=== PATIENT | female | born 1975 | race Caucasian/White ===

== ENCOUNTER 2023-06-13 05:50 | Emergency (ER) | payer BC, SELFPAY ==
[2023-06-13] VITALS (9 sets, daily range): BP systolic 153–189; BP diastolic 95–130; PULSE 80–95; RESP 18–20; TEMP 37.3; O2SAT 96–100; BMI 24.6
--- NOTE | 2023-06-13 06:00 | CRLHL7_ITS ---
For Patients: As a result of the Century Cures Act, medical imaging exams and procedure reports are released immediately into your electronic medical record. You may view this report before your referring provider. If you have questions, please contact your health care provider. INDICATION: stroke symptoms TECHNIQUE: CT head without contrast. COMPARISON: CT head June 15, 2018 FINDINGS: Large acute intraparenchymal hemorrhage/hematoma within the left basal ganglia, measuring 4.1 x 2.3 x 3.5 cm. There is surrounding vasogenic edema which results in effacement of the left lateral ventricle an approximately 2 mm of [id number] midline shift. The basilar cisterns are patent. Likely small amount of subjacent subarachnoid blood anteriorly. No evidence of acute hydrocephalus. Paranasal sinuses and mastoid air cells are clear. No evidence of skull fracture. IMPRESSION: Large acute intraparenchymal hemorrhage/hematoma within the left basal ganglia, with surrounding vasogenic edema. Associated effacement of left lateral ventricle and 2 mm of left right midline shift. Likely small amount of adjacent subarachnoid blood anteriorly. No evidence of acute hydrocephalus. Findings discussed with Dr. Rut Reed at 6:23 a.m. Please note that all CT scans at this facility use dose modulation, iterative reconstruction, and/or weight-based dosing when appropriate to reduce radiation dose to as low as reasonably achievable. Dictated by Pedro James MD @ 06/13/2023 6:29:33 AM (Electronically Signed)
--- NOTE | 2023-06-13 06:11 | ED.GENADULT ---
HPI - General Adult General Chief complaint: Unspecified Complaint, Adult Stated complaint: right side facial paralysis Time Seen by Provider: 06/13/23 05:55 Source: patient and family Mode of arrival: ambulatory History of Present Illness HPI narrative: Patient assessed 5 minutes from arrival. 3 minutes were spent on assessment and we went directly to CT. A few minutes were spent prepping patient for CT. I stayed in the room and watched the CT flash up on the screen and immediately saw a left-sided ventricular bleed. I came back to the room and began calling neuro surgery/icu, call made to Reece Crowe at 6:06 a.m.. Patient last known well at about 3:30 p.m. on 06/12. This is about 15 hours prior to arrival Patient reports that she started feeling sleepy and just not herself, thought a rest would improve things. Mother came over to check on her at 7:00 p.m. and noted her to definitely be slurring her words at that time but there was an open bottle of wine next to the bed, it sounds as though mom did not think this could possibly be a stroke. Patient awoke this morning still feeling unwell. She can tell that her words are slurring, she is having difficulty moving her right side. She has no headache or pain. She adamantly denies any falls or trauma. Does not use any anticoagulants. No prior history of stroke. States that her past medical history is benign, denies long-term health problems. No allergies, denies drug use. Last drink of alcohol was wine last evening. PFSH COUNTS INCLUDE 234 BEDS AT THE [facility] Social History How often do you have a drink containing alcohol: 2-3 times a week AUDIT-C Alcohol total score: 3 Non-prescribed substance use: denies use Exam Const: Vital Signs, click to edit/add: Vital Signs - 24 hr 06/13/23 06:07 06/13/23 06:10 06/13/23 06:11 Temperature 99.1 F Pulse Rate 89 Pulse Rate [Pulse Oximeter] 80 86 Respiratory Rate 20 18 Blood Pressure 181/122 H Blood Pressure [Ri ght Upper Arm] 181/122 H 189/130 H Pulse Oximetry 98 99 97 Oxygen Delivery Me thod Room Air Room Air 06/13/23 06:21 06/13/23 06:22 12/19/23 06:30 Temperature Pulse Rate 87 84 95 Pulse Rate [Pulse Oximeter] Respiratory Rate Blood Pressure 160/120 H Blood Pressure [Ri ght Upper Arm] Pulse Oximetry 97 96 100 Oxygen Delivery Me thod 06/13/23 06:31 06/13/23 06:34 Temperature Pulse Rate 90 Pulse Rate [Pulse Oximeter] Respiratory Rate 20 Blood Pressure 153/95 H Blood Pressure [Ri ght Upper Arm] Pulse Oximetry 98 97 Oxygen Delivery Me thod Room Air Documenting provider has reviewed patient's vital signs: yes Common normals: oriented x3 and alert Other: Calm and cooperative. Pretty good recall and can answer questions appropriately. May have a slight deficit in finding her words and certainly has some dysarthria but seems as though her cognition is fully intact. HENMT: Common normals: normocephalic and head/scalp atraumatic Head and scalp: normocephalic and atraumatic Mouth: oral and palatal mucosa normal Other: Tongue does deviate slightly to the left on protrusion significant right facial droop. Eye: Common normals: PERRL and EOMs intact bilaterally Pupil: PERRL Other: Has some visual field deficits in the right lateral herman. Slight gaze preference to the left. Neck & C-Spine: Common normals: full ROM and no lymphadenopathy Resp: Common normals: normal respiratory effort, no use of accessory muscles and clear to auscultation bilaterally Effort & inspection: able to speak in complete sentences Auscultation: clear to auscultation bilaterally Cardio: Common normals: regular rate, regular rhythm, S1 normal heart sound, S2 normal heart sound and no murmurs Rate: regular rate Rhythm: regular rhythm Heart sounds: S1 normal and S2 normal GI: Common normals: Normal to inspection, nondistended, normoactive bowel sounds present, soft to palpation, non-tender, no hepatosplenomegaly and no masses Palpation: soft and no hepatosplenomegaly Extremity: Common normals: normal to inspection and normal capillary refill Neuro: Common normals: oriented x3 Sensorium/orientation: alert Other: Right facial droop, slight right gaze avoidance, decreased sensation to right arm and leg. 2/5 motor weakness to right arm, 4/5 weakness to right leg more proximal than distal. Left side normal. Dysarthria and possibly a slight aphasia. Concentration and mentation do seem intact. Drift in right leg, difficulty opposing gravity at all in right arm. Psych: Common normals: mental status grossly normal and thought process normal Activity/motor behavior: appropriate eye contact Thought process: normal thought process Insight: fair Judgement: fair Skin: Common normals: no rashes or lesions noted General skin exam: no rashes or lesions noted Course Course ED Course: Patient assessed promptly on arrival. Less than 3 minutes were spent on exam and history taking. We moved her quickly over to CT, being of limited staffing overnight, I accompanied patient. It took us a few minutes to get her settled into CT and of course the CT performed. I stayed in the room and watched the images quickly flash on the screen. It is obvious that she has a large bleed in the left ventricle. Because of this, I leave the room as another nurse had arrived. They will transfer patient back to room 8. I began calling Reece Crowe for further stroke guidance requesting neuro surgery and ICU. I 1st looked at the clock at 6:07 a.m. but was likely on the phone by [phone]. It did take 11 minutes of being on the phone to get acceptance. Spoke with the animal handler, together we agreed is insert initial pressures were 180s over 120s we should try to lower this to about 160s. Will start nicardipine. Neuro exam showing an NIH of about 11. When I went in to talk to the patient about the findings and the plan, the nurse was starting the nicardipine drip. At that point her repeat pressure was 160/120. I asked them to reduce from 5 mg down to 2.5 milligrams/hour. Just as we were starting that, EMS did arrive and we reviewed the plan of care. We spent about 10 minutes packing her up for transport, reviewing plan of care. At callback at that time and gives a bed number for the neuro ICU. Patient transferred quickly via ALS ground. Instructions on titration parameters for the in a car to pain were given in written for the ambulance team. Total ER time 40 minutes, all spent in critical care. Vital Signs Vital signs: Initial Vital Signs Temperature Source Temporal Artery Scan 06/13/23 06:07 Pulse Rate 80 06/13/23 06:07 Respiratory Rate 20 06/13/23 06:07 Respiratory Effort Normal, Spontaneous, Non-Labored 06/13/23 06:07 Respiratory Depth Normal 06/13/23 06:07 Blood Pressure 181/122 H 06/13/23 06:07 Blood Pressure Mean 141 H 06/13/23 06:07 Blood Pressure Position Sitting 06/13/23 06:07 Pulse Oximetry 98 06/13/23 06:07 Oxygen Delivery Method Room Air 06/13/23 06:07 Vital Signs Pulse Rate 80 06/13/23 06:07 Respiratory Rate 20 06/13/23 06:07 Blood Pressure 181/122 H 06/13/23 06:07 Pulse Oximetry 98 06/13/23 06:07 Oxygen Delivery Method Room Air 06/13/23 06:07 Temperature 99.1 F 06/13/23 06:10 Pulse Rate 90 06/13/23 06:31 Respiratory Rate 20 06/13/23 06:34 Blood Pressure 153/95 H 06/13/23 06:31 Pulse Oximetry 97 06/13/23 06:34 Oxygen Delivery Method Room Air 06/13/23 06:34 Medications Administered Medications: Generic Name Dose Route Start Last Admin Trade Name Freq PRN Reason Stop Dose Admin Nicardipine HCl 25 mg/ Sodium 250 mls @ 50 mls/hr 06/13/23 06:19 06/13/23 06:28 Chloride IVPB 25 mls/hr .TITRATE PRN Administration HTN Medical Decision Making Lab Data Lab results reviewed: Yes I reviewed the patient's lab results Labs: Lab Results 06/13/23 Range/Units 05:55 WBC 9.51 (4.50-11.00) K/uL RBC 4.92 (4.00-5.20) m/uL Hgb 16.0 (12.0-16.0) gm/dL Hct 47.6 (33.0-51.0) % MCV 97 (80-100) fL MCH 33 (26-34) pg MCHC 34 (32-36) gm/dL RDW Coeff of Jeannie 12.3 (11.5-15.5) % Plt Count 311 (140-440) K/uL Neut % (Auto) 70.1 (42.0-72.0) % Lymph % (Auto) 20.8 (20-44) % [place] % (Auto) 6.9 (0.0-11.0) % Eos % (Auto) 1.6 (0.0-7.0) % Baso % (Auto) 0.4 (0.0-3.0) % Neut # (Auto) 6.66 (1.7-7.0) K/uL Lymph # (Auto) 1.98 (0.90-2.90) K/uL [place] # (Auto) 0.70 (0.00-0.90) K/UL Eos # (Auto) 0.15 (0.00-0.50) K/uL Baso # (Auto) 0.04 (0.00-0.30) K/uL Abs Immat Gran (auto) 0.02 (0.00-0.30) K/uL Imm/Tot Granulo (auto) 0.2 % INR 0.90 L (0.91-1.10) Sodium 141 (135-149) mmol/L Potassium 4.3 (3.6-5.1) mmol/L Chloride 103 (96-114) mmol/L Carbon Dioxide 22 (20-32) mmol/L Anion Gap 16 H (7-15) mEq/L BUN 14 (5-24) mg/dL Creatinine 0.9 (0.5-1.5) mg/dL Estimated Creat Clear 58.94 Estimated GFR 80 ml/min Glucose 96 (60-115) mg/dL Calcium 10.2 (8.4-10.6) mg/dL Total Bilirubin 1.4 (0.1-1.5) mg/dL AST 58 H (12-35) U/L ALT 53 H (4-35) U/L Alkaline Phosphatase 81 (40-150) U/L Total Protein 9.1 H (6.0-8.3) g/dL Albumin 5.4 H (3.3-5.0) g/dL Ethyl Alcohol < 0.01 L (0.01-0.03) % Imaging Data CT scan - head: Attestation: I have reviewed the pertinent imaging results. My impression: Hemorrhagic stroke left ventricle Radiologist's impression: IMPRESSION: Large acute intraparenchymal hemorrhage/hematoma within the left basal ganglia, with surrounding vasogenic edema. Associated effacement of left lateral ventricle and 2 mm of left right midline shift. Likely small amount of adjacent subarachnoid blood anteriorly. No evidence of acute hydrocephalus. Findings discussed with Dr. Rut Storlie at 6:23 a.m. Discharge Plan Discharge Clinical Impression: Hemorrhagic stroke Patient Disposition: Xfer [facility] Discharge Location: [facility] Condition: Guarded Stand Alone Forms: ByRead Info Instructions
[2023-06-13 06:25] LABS: Basophils Absolute Auto 0.04 K/uL (0.00-0.30); Basophils Percent Auto 0.4 % (0.0-3.0); Eosinophils Absolute Auto 0.15 K/uL (0.00-0.50); Eosinophils Percent Auto 1.6 % (0.0-7.0); Hematocrit 47.6 % (33.0-51.0); Immature Granulocytes Abs Auto 0.02 K/uL (0.00-0.30); Immature Granulocytes Pct Auto 0.2 %; Lymphocytes Absolute Auto 1.98 K/uL (0.90-2.90); Lymphocytes Percent Auto 20.8 % (20-44); Mean Corpuscular HGB Conc 34 gm/dL (32-36); Mean Corpuscular Hemoglobin 33 pg (26-34); Mean Corpuscular Volume 97 fL (80-100); Monocytes Percent Auto 6.9 % (0.0-11.0); Neutrophils Absolute Auto 6.66 K/uL (1.7-7.0); Neutrophils Percent Auto 70.1 % (42.0-72.0); Platelet Count* 311 K/uL (140-440); RDW Coefficient of Variation % 12.3 % (11.5-15.5); Red Blood Count 4.92 m/uL (4.00-5.20); White Blood Count* 9.51 K/uL (4.50-11.00)
[2023-06-13 06:26] LABS: Albumin* 5.4 g/dL (3.3-5.0); Chloride* 103 mmol/L (96-114); Prothrombin Time 12.7 Seconds; Sodium* 141 mmol/L (135-149)
[2023-06-13 06:27] LABS: Potassium* 4.3 mmol/L (3.6-5.1)
[2023-06-13] MEDS: NICARDIPINE HCL 25 MG in 0.9 % SODIUM CHLORIDE 250 ml 240 ML IVPB (06:28)
[2023-06-13 06:29] LABS: Alkaline Phosphatase* 81 U/L (40-150); Anion Gap 16 mEq/L (7-15); Aspartate Amino Transferase* 58 U/L (12-35); Bilirubin Total* 1.4 mg/dL (0.1-1.5); Carbon Dioxide* 22 mmol/L (20-32); Creatinine* 0.9 mg/dL (0.5-1.5); Est. Creatinine Clearance* 58.94; Estimated Glomerular Filt Rate 80 ml/min; Slide Review Reflex No; Total Protein* 9.1 g/dL (6.0-8.3)
[2023-06-13 06:30] LABS: Alanine Aminotransferase* 53 U/L (4-35); Blood Urea Nitrogen* 14 mg/dL (5-24); Calcium* 10.2 mg/dL (8.4-10.6); Glucose* 96 mg/dL (60-115)
[2023-06-13 06:31] LABS: Ethanol* < 0.01 % (0.01-0.03)
[2023-06-13 06:32] LABS: C Reactive Protein* 0.7 mg/dL (0.5-1.0)
--- NOTE | 2023-06-13 06:44 | ED.NURSE ---
nfld ems at bedside to take pt out. ems walked out with pt at [phone]
[2023-06-13 07:00] LABS: HCG Quantitative* < 2.39 mIU/mL
--- NOTE | 2023-06-13 07:31 | ED.NURSE ---
phone report to julian MENDOZA.
== END 2023-06-13 06:44 | disposition short-term general hospital (02) ==
PROVIDERS: Emergency Provider Family Medicine; PCP Internal Medicine
DX: I61.9 Nontraumatic intracerebral hemorrhage, unspecified (principal)
CPT/HCPCS: 36415; 70450; 80053; 82077; 84702; 85025; 85610; 86140; 93005; 94761; 95992; 99284; 99285; 99291; J7050

== ENCOUNTER 2023-06-13 06:33 | Outpatient (CLI) | payer BC, SELFPAY | END 2023-06-13 06:34 | disposition home or self-care (01) | LOC: AMB 06-15 11:02 | PROVIDERS: PCP Internal Medicine; Visit Provider Family Medicine | DX: R41.81 Age-related cognitive decline (principal); R53.1 Weakness | CPT/HCPCS: A0425; A0434 ==

== ENCOUNTER 2023-06-20 08:15 | Outpatient (CLI) | payer BC, SELFPAY | END 2023-06-20 08:16 | disposition home or self-care (01) | PROVIDERS: PCP Internal Medicine; Visit Provider Family Medicine | DX: I61.9 Nontraumatic intracerebral hemorrhage, unspecified (principal); G81.90 Hemiplegia, unspecified affecting unspecified side | CPT/HCPCS: 80053; 80061; 84443 ==

== ENCOUNTER 2023-10-04 07:26 | Outpatient (CLI) | payer BC, SELFPAY | END 2023-10-04 07:27 | disposition home or self-care (01) | LOC: NFLDREF 10-06 06:11 | PROVIDERS: PCP Internal Medicine; Referring Provider Internal Medicine; Visit Provider Internal Medicine | DX: E78.00 Pure hypercholesterolemia, unspecified (principal) | CPT/HCPCS: 80061 ==

== ENCOUNTER 2023-11-03 10:25 | Outpatient (CLI) | payer BC, SELFPAY ==
--- NOTE | 2023-11-03 10:45 | MM_ITS ---
Patient: SUNDAY COTO Facility:?[facility] RIS Patient ID:?[id number] Site Patient ID:?[id number] Site :?[id number] Study:?XRay-Breast Bilateral 3D W/CAD-11/03/2023 11:02:53 AM Ordering Physician:Stephani Final Report: BILATERAL SCREENING MAMMOGRAM WITH COMPUTER-AIDED DETECTION AND TOMOSYNTHESIS TECHNIQUE: CC and MLO views were obtained. These mammographic images have been obtained using full-field digital technique. These mammographic images were interpreted with the benefit of computer-aided detection. Breast Tomosynthesis was used in this interpretation. COMPARISON FILM: 05/28/20. FINDINGS: There are scattered areas of fibroglandular density. IMPRESSION: There is no radiographic evidence for malignancy. ASSESSMENT: BI-RADS Category 1: Negative RECOMMENDATION: Routine screening mammogram in 1 year. A lay language report of this examination will be provided to the patient. Ángel Camara M.D. Diagnostic Radiologist [email or web address] DSM/sp R& Transcribed: 3:38 p.m. SP/Dictated by: Ángel Camara MD @ 11/06/2023 11:51:00 AM Signed by:?Ángel Camara MD @11/06/2023 4:00:51 PM (Electronic Signature)
== END 2023-11-03 10:26 | disposition home or self-care (01) ==
LOC: MAMMO 10:26
PROVIDERS: PCP Internal Medicine; Visit Provider Internal Medicine
DX: Z12.31 Encounter for screening mammogram for malignant neoplasm of breast (principal)
CPT/HCPCS: 77063; 77067

== ENCOUNTER 2023-11-14 09:55 | Outpatient (CLI) | payer BC, SELFPAY ==
--- NOTE | 2023-11-14 10:34 | W.ANESCHARGE ---
Anesthesia Charges Start Date/Time Anesthesia Start Date: 11/14/23 Anesthesia Start Time: 11:35 Stop Date/Time Anesthesia Stop Date: 11/14/23 Anesthesia Stop Time: 12:03
--- NOTE | 2023-11-14 12:05 | W.ANESCHARGE ---
Anesthesia Charges Start Date/Time Anesthesia Start Date: 11/14/23 Anesthesia Start Time: 11:35 Stop Date/Time Anesthesia Stop Date: 11/14/23 Anesthesia Stop Time: 12:03
== END 2023-11-14 09:56 | disposition home or self-care (01) ==
LOC: OP CLINIC 09:55
PROVIDERS: PCP Internal Medicine; Visit Provider Surgery
DX: Z12.11 Encounter for screening for malignant neoplasm of colon (principal); K64.8 Other hemorrhoids; K57.30 Diverticulosis of large intestine without perforation or abscess without bleeding
CPT/HCPCS: 00812; 45378; J2704

== ENCOUNTER 2024-07-12 15:32 | Outpatient (CLI) | payer BC, SELFPAY ==
[2024-07-12 22:33] LABS: Chlamydia DNA Amplified* NOT DETECTED (No Detected); GC DNA Amplified* NOT DETECTED (No Detected)
== END 2024-07-12 15:33 | disposition home or self-care (01) ==
LOC: NFLDREF 15:33
PROVIDERS: PCP Internal Medicine; Visit Provider Registered Nurse
DX: Z11.3 Encounter for screening for infections with a predominantly sexual mode of transmission (principal)
CPT/HCPCS: 87491; 87591

== ENCOUNTER 2024-07-24 08:40 | Outpatient (CLI) | payer BC, SELFPAY | END 2024-07-24 08:41 | disposition home or self-care (01) | PROVIDERS: PCP Internal Medicine; Visit Provider Internal Medicine | DX: Z13.228 Encounter for screening for other metabolic disorders (principal); Z13.220 Encounter for screening for lipoid disorders; Z13.29 Encounter for screening for other suspected endocrine disorder | CPT/HCPCS: 80053; 80061; 84443 ==